=== PATIENT | male | born 1935 | race African-American/Black ===

== ENCOUNTER 2025-06-20 11:54 | Outpatient (CLI) | payer MEDICARE, BC ==
[2025-06-20 12:22] LABS: Hemoglobin 10.0 g/dL (13.5-17.5); Mean Corpuscular Volume 83.1 fL (80.0-100.0)
[2025-06-20 12:26] LABS: Hematocrit 30.3 % (41.0-53.0); Mean Corpuscular Hemoglobin 27.5 pg (28.0-32.0); Nucleated Red Blood Cells % 0.1 %
[2025-06-20 12:47] LABS: Urine Protein, UAD Negative (Negative)
[2025-06-20 13:07] LABS: Alanine Aminotransferase 12 U/L (7-40); Albumin 4.0 g/dL (3.2-4.8); Alkaline Phosphatase 92 U/L (46-116); Anion Gap 10 (5-15); BUN/Creatinine Ratio 12.8 (10.0-20.0); Blood Urea Nitrogen 14 mg/dL (9-23); Calcium 9.2 mg/dL (8.7-10.4); Carbon Dioxide 24 mmol/L (20-31); Chloride 103 mmol/L (98-107); Cholesterol 130 mg/dL (< 200); Glucose 94 mg/dL (74-106); HDL Cholesterol 49 mg/dL (40-59); Potassium 3.9 mmol/L (3.5-5.1); Sodium 137 mmol/L (136-145); Total Protein 6.8 g/dL (5.7-8.2); Triglycerides 49 mg/dL (< 150)
[2025-06-20 13:08] LABS: Bilirubin, Total 0.7 mg/dL (0.2-1.0)
[2025-06-20 13:10] LABS: Free T4 (Free Thyroxine) 1.0 ng/dL (0.89-1.76); Prostate Specific Antigen 4.9 ng/mL (0.0-4.0)
[2025-06-21 08:07] LABS: Prostate Specific Antigen 5.5 ng/mL (0.0-4.0)
== END 2025-06-20 17:00 | disposition home or self-care (01) ==
LOC: LAB 11:54
PROVIDERS: ATTEND Internal Medicine
DX: N40.0 Benign prostatic hyperplasia without lower urinary tract symptoms (principal); I10 Essential (primary) hypertension; M48.061 Spinal stenosis, lumbar region without neurogenic claudication
CPT/HCPCS: 36415; 80053; 80061; 81001; 82607; 84153; 84154; 84439; 84443; 85025; 85652